=== PATIENT | male | born 2005 | race Caucasian/White ===

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

== ENCOUNTER → 2023-11-13 14:13 | Outpatient (CLI) | payer OTHER, SELFPAY ==
--- NOTE | 2023-11-13 14:23 | DI.RAD.S_ITS ---
PROCEDURE: XR FINGER LT MIN 2V INDICATIONS: LEFT THUMB INJURY TECHNIQUE: AP hand, 2 views of the 1st finger(s) acquired. COMPARISON: [facility], CR, XR FINGER(S) LEFT, 10/23/2022, 9:13. FINDINGS: Bones: Comminuted fracture involving 1st proximal phalangeal neck is seen without significant displacement. No other fracture or dislocation is seen. Fracture line possibly extends to 1st interphalangeal joint space. No suspicious bony lesions. Soft tissues: No suspicious soft tissue calcifications. IMPRESSION: Comminuted nondisplaced intra-articular fracture of 1st proximal phalangeal head and neck. Dictated by: Peter Molina M.D. on 11/13/2023 at 17:05 Approved by: Peter Molina M.D. on 11/13/2023 at 17:07
== END ==
PROVIDERS: Referring Provider Family Medicine; Visit Provider Family Medicine
DX: S62.515A Nondisplaced fracture of proximal phalanx of left thumb, initial encounter for closed fracture (principal); S66.212A Strain of extensor muscle, fascia and tendon of left thumb at wrist and hand level, initial encounter; X58.XXXA Exposure to other specified factors, initial encounter
CPT/HCPCS: 73140

== ENCOUNTER → 2024-02-17 10:44 | Outpatient (CLI) | payer OTHER, SELFPAY ==
--- NOTE | 2024-02-17 10:48 | DI.RAD.S_ITS ---
PROCEDURE: XR TIBIA FIBULA LT 2V INDICATIONS: Contusion of left lower leg, initial encounter TECHNIQUE: 2 views of the tibia and fibula were acquired. COMPARISON: None. FINDINGS: Bones: No fractures or dislocations. No suspicious bony lesions. Soft tissues: Mild soft tissue swelling in the anterior distal leg. IMPRESSION: Mild soft tissue swelling in the anterior distal leg. Underlying mass cannot be excluded. Dictated by: Dotty Gardner M.D. on 02/19/2024 at 16:13 Approved by: Dotty Gardner M.D. on 02/19/2024 at 16:16
== END ==
PROVIDERS: Referring Provider Family Medicine; Visit Provider Family Medicine
DX: S80.12XA Contusion of left lower leg, initial encounter (principal); M79.89 Other specified soft tissue disorders; X58.XXXA Exposure to other specified factors, initial encounter
CPT/HCPCS: 73590

== ENCOUNTER → 2024-04-28 15:07 | Outpatient (CLI) | payer OTHER, SELFPAY ==
--- NOTE | 2024-04-28 15:11 | DI.RAD.S_ITS ---
P no no no no ROCEDURE: XR FINGER LT MIN 2V INDICATIONS: THUMB FRACTURE TECHNIQUE: AP hand, 2 views of the 1st left finger(s) acquired. COMPARISON: [facility], , XR FINGER LT MIN 2V, 11/13/2023, 13:29. FINDINGS: Bones: There has been interval healing of the fracture at the distal aspect of the left 1st proximal phalanx. The fracture lines are no longer visualized. No new suspicious bony lesions. Soft tissues: No suspicious soft tissue calcifications. IMPRESSION: Healed proximal left 1st phalangeal fracture. Dictated by: Meenu Baldwin M.D. on 04/29/2024 at 12:00 Approved by: Meenu Baldwin M.D. on 04/29/2024 at 12:01
== END ==
PROVIDERS: Referring Provider Family Medicine; Visit Provider Family Medicine
DX: S62.512D Displaced fracture of proximal phalanx of left thumb, subsequent encounter for fracture with routine healing (principal); X58.XXXD Exposure to other specified factors, subsequent encounter
CPT/HCPCS: 73140